=== PATIENT | male | born 1960 | race Two or more races ===

== ENCOUNTER 2022-05-16 08:08 | Outpatient (CLI) | payer OTHER | END 2022-05-16 08:23 | disposition home or self-care (01) | LOC: RAD 08:08 | DX: E04.9 Nontoxic goiter, unspecified (principal); K21.9 Gastro-esophageal reflux disease without esophagitis ==

== ENCOUNTER 2022-07-18 10:09 | Outpatient (CLI) | payer OTHER ==
[2022-07-19] MEDS ORDERED: ZESTRIL20 MG PO (11:04)
[2022-07-19] MEDS ORDERED: AMLOD PO (11:05)
== END 2022-07-18 10:13 | disposition home or self-care (01) ==
LOC: LAB 10:09
PROVIDERS: ATTEND Orthopaedic Surgery Hand Surgery
DX: E11.9 Type 2 diabetes mellitus without complications (principal); E78.00 Pure hypercholesterolemia, unspecified; E78.3 Hyperchylomicronemia; D65 Disseminated intravascular coagulation [defibrination syndrome]; D66 Hereditary factor VIII deficiency; N39.0 Urinary tract infection, site not specified

== ENCOUNTER 2022-10-27 09:16 | Outpatient (CLI) | payer OTHER ==
[~2022-10-27 09:16] MED LIST: AMLOD PO; ZESTRIL20 MG PO
== END 2022-10-27 09:22 | disposition home or self-care (01) ==
LOC: TOM 09:16
PROVIDERS: ATTEND Family Medicine
DX: R10.10 Upper abdominal pain, unspecified (principal); Z86.010 Personal history of colon polyps